=== PATIENT | female | born 1950 | race Hispanic/Latino ===

== ENCOUNTER 2022-08-03 10:46 | Outpatient (RCR) | payer MEDICARE | END 2022-08-04 | LOC: PT 10:46 | PROVIDERS: ATTEND Podiatrist Foot & Ankle Surgery | DX: M76.62 Achilles tendinitis, left leg (principal) ==

== ENCOUNTER 2022-09-01 12:55 | Outpatient (RCR) | payer MEDICARE | END 2022-09-03 | LOC: PT 12:55 | PROVIDERS: ATTEND Podiatrist Foot & Ankle Surgery | DX: M76.62 Achilles tendinitis, left leg (principal) ==